=== PATIENT | female | born 1980 | race Caucasian/White ===

== ENCOUNTER 2019-04-18 17:43 | Emergency (ER) | payer MEDICAID ==
--- NOTE | 2019-04-18 18:01 | Emergency Department Record ---
History of Present Illness - General Chief complaint: Extremity Problem Stated complaint: R hand/wrist pain Time Seen by Provider: 04/18/19 17:53 Source: Patient, Family Mode of Arrival: Ambulatory Limitations: No limitations - History of Present Illness Initial comments: 39 yo female presents with right hand pain. She punched a wall on Sunday. She has had pain since then in the hand. The pain is over the ulnar side of the hand. No pain in the wrist. No injury to the skin. She is right handed. She tried and OTC velcro brace with some help. MD Complaint: Extremity pain, Extremity swelling, Joint pain Onset/Timin -: Days(s) Location: Right, Hand -: Yes Arthralgia Radiation: Proximal, Distal Severity scale (1-10): 8 Quality: Aching Consistency: Constant, Intermittent Improves with: Nothing Worsens with: Other - Related Data Previous Rx's Medication Instructions Recorded Hydrocodone/Acetaminophen [[place] 1 each PO Q6H #12 tablet 04/18/19 5-325 Tablet] Allergies Allergy/AdvReac Type Severity Reaction Status Date / Time Penicillins Allergy SWELLING Verified 04/18/19 17:52 (GENERAL) Travel Screening - Travel/Exposure Within Last 30 Days Have you traveled within the last 30 days?: No - Travel/Exposure Within Last Year Have you traveled outside the [place] in the last year?: No - Additonal Travel Details Have you been exposed to anyone with a communicable illness?: No - Travel Symptoms Symptom Screening: None Review of Systems Constitutional: Denies: Chills, Fever, Weakness Eyes: Denies: Eye discharge ENT: Denies: Congestion Respiratory: Denies: Cough, Dyspnea Cardiovascular: Denies: Chest pain Endocrine: Denies: Fatigue Gastrointestinal: Denies: Abdominal pain, Diarrhea, Nausea, Vomiting Genitourinary: Denies: Dysuria, Frequency Musculoskeletal: Reports: Arthralgia Skin: Denies: Bruising, Change in color, Rash Neurological: Denies: Headache Psychiatric: Denies: Anxiety Hematological/Lymphatic: Denies: Easy bleeding, Easy bruising Past Medical History - SOCIAL HISTORY Smoking Status: Heavy tobacco smoker (>10/day) Alcohol Use: None Drug Use: Rare, Occasional Drug Use Detail:: Marijuana - RESPIRATORY Hx Respiratory Disorders: No - CARDIOVASCULAR Hx Cardio Disorders: No - NEURO Hx Neuro Disorders: No - GI Hx GI Disorders: No - Hx Genitourinary Disorders: No - ENDOCRINE Hx Endocrine Disorders: No - MUSCULOSKELETAL Hx Musculoskeletal Disorders: No - PSYCH Hx Psych Problems: Yes Hx Depression: Yes - HEMATOLOGY/ONCOLOGY Hx Hematology/Oncology Disorders: No Family Medical History Any Significant Family History?: Yes Physical Exam - General General Appearance: Alert, Oriented x3, Cooperative, No acute distress Limitations: No limitations - Head Head exam: Atraumatic, Normal inspection - Eye Eye exam: Normal appearance, PERRL. negative: Conjunctival injection, Scleral icterus - ENT ENT exam: Normal exam Ear exam: Normal external inspection Nasal Exam: Normal inspection Mouth exam: Normal external inspection - Neck Neck exam: Normal inspection - Respiratory Respiratory exam: Normal lung sounds bilaterally - Cardiovascular Cardiovascular Exam: Regular rate, Normal rhythm, Normal heart sounds - Rectal Rectal exam: Deferred - exam: Deferred - Extremities Extremities exam: Full ROM, Joint swelling, Tenderness. negative: Normal insp ection Image of Hand: 1 - mild swelling, mild tenderness, intact skin - Back Back exam: Denies: CVA tenderness (R), CVA tenderness (L) - Neurological Neurological exam: Alert, Oriented X3 - Psychiatric Psychiatric exam: Normal affect, Normal mood - Skin Skin exam: Dry, Intact, Normal color, Warm Course Vital Signs 04/18/19 17:45 Temperature 98.2 F Pulse Rate 65 Respiratory 18 Rate Blood Pressure 102/61 Pulse Ox 96 - Reevaluation(s) Reevaluation #1: 04/18/19 18:40 The XR was reviewed Boxer's fracture with mildly impacted,comminuted, non displaced fracture at the base of the fifth She was splinted and provided a referral She is to also call her PCP for follow up recheck 04/18/19 18:43 The patient was prescribed a controlled substance. The prescription does not exceed three days. MAPS was reviewed at the time of the prescripts The topics of abuse, addiction, over dose, dangers of multiple medications, disposal, and illegal distribution were discussed with the patient. The patient verbalized understanding of the risks of the medication being provided Disposition Disposition: Discharge Clinical Impression: Boxers fracture Disposition: Home, Self-Care Condition: (1) Good Instructions: Boxer Fracture (ED) Additional Instructions: Use the splint for support and comfort Do not remove it Return if you have any concerns with the comfort of the splint You have been referred to the orthopedic clinic for follow up Call your doctor as well for follow up recheck of the injury Prescriptions: Hydrocodone/Acetaminophen [Lusk 5-325 Tablet] 1 each PO Q6H #12 tablet Referrals: Tai Menendez [DOCTOR OF OSTEOPATH] - [facility] [Provider Group] Forms: Patient Portal Access Time of Disposition: 18:44 Quality - Quality Measures Quality Measures: N/A - Blood Pressure Screening Does Patient Have Any of the Following: No Blood Pressure Classification: Normal BP Reading Systolic Measurement: 102 Diastolic Measurement: 61 Screening for High Blood Pressure: < Normal BP, F/U Not Required > [G8783]
[2019-04-18] MEDS ORDERED: HYDROCODONE/APAP 5/325MG TABLET PO ONE (18:39)
--- NOTE | 2019-04-21 18:26 | RADIOLOGY REPORT ---
EXAM: HAND, RIGHT 3 VIEWS HISTORY: PATIENT PUNCHED A WALL FOUR DAYS AGO. PERSISTENT PAIN AND SWELLING WITHIN THE RIGHT HAND AND DISTAL FOREARM. TECHNIQUE: Three views of the right hand were obtained. COMPARISON: None. FINDINGS: There is a mildly impacted comminuted interarticular fracture at the base of the fifth metacarpal. The remaining osseous and articular structures appear intact. There is overlying soft tissue swelling. IMPRESSION: MILDLY IMPACTED COMMINUTED INTERARTICULAR FRACTURE AT THE BASE OF THE FIFTH METACARPAL. JOB NUMBER: [id number] MTDD
== END 2019-04-18 18:57 | disposition home or self-care (01) ==
LOC: ER 17:43
DX: S62.346A Nondisplaced fracture of base of fifth metacarpal bone, right hand, initial encounter for closed fracture (principal); W22.8XXA Striking against or struck by other objects, initial encounter; F17.210 Nicotine dependence, cigarettes, uncomplicated
CPT/HCPCS: 99283; 99284